=== PATIENT | female | born 1980 | race Caucasian/White ===

== ENCOUNTER 2018-06-04 22:57 | Emergency (ER) | payer MEDICAID ==
[~2018-06-04] VITALS: Ht 160 cm; Wt 88.6 kg
[~2018-06-04 22:57] MED LIST: IBUP-40 PO
[2018-06-04 23:09] VITALS: BP 142/95; PULSE 78; RESP 16; Ht 160 cm; Wt 88.6 kg
--- NOTE | 2018-06-05 02:50 | ERD ---
ER Documentation Chief Complaint Chief Complaint L side pain x 3 weeks, nausea and diarrhea HPI This is a 37-year-old female denies significant past medical history presents ED with complaints of left-sided abdominal pain that has been present for over 3 years. Patient states the pain comes and goes. Patient states that this bout of pain started over the past 3 weeks. Patient denies any pain currently.. Patient states the pain is worsened by movement and with exercise. States that she notes some discomfort when urinating. Denies fever, chills, nausea, vomiting, diarrhea, constipation, melena, hematocheziahematuria, vaginal pain, vaginal discharge, and other symptoms. No known drug allergies. Has not been seen by GI specialist. ROS All systems reviewed and are negative except as per history of present illness. Medications Home Meds Reported Medications Ibuprofen (Advil) 200 Mg Tablet, PO Q6 02/19/12 Allergies Allergies: Coded Allergies: No Known Allergy (Unverified , 06/04/18) PMhx/Soc History of Surgery: Yes (TUBAL LIGATION) Anesthesia Reaction: No Hx Neurological Disorder: No Hx Respiratory Disorders: No Hx Cardiac Disorders: No Hx Psychiatric Problems: No Hx Miscellaneous Medical Probl: Yes (CHRONIC PAIN FOR APPROX ONE YEAR) Hx Alcohol Use: No Hx Substance Use: No Hx Tobacco Use: No Smoking Status: Never smoker Physical Exam Vitals Vital Signs Date Temp Pulse Resp B/P (MAP) Pulse Ox O2 O2 Flow FiO2 Time Delivery Rate 06/04/18 97.6 78 16 142/95 97 23:09 (111) Physical Exam Physical Exam Vitals signs: Reviewed by me. General: Well developed, well nourished, in no acute distress. Patient is awake and alert. Head: Normocephalic, atraumatic. Eyes: Normal conjunctiva, Pupils PERRLA, EOM intact grossly ENT: Pharynx is clear, Moist mucous membranes, external ears, nose and mouth normal Neck: Supple, no masses, lymphadenopathy or JVD Respiratory: Clear to auscultation bilaterally with no wheezing, rhonchi, rales, no distress Cardiovascular: RRR, no murmurs, rubs, or gallops Abdominal: Soft, nondistended, no peritoneal signs, no rigidity, no surgical abdomen, bowel sounds present all 4 quadrants, nontender light and deep palpation all 4 quadrants, McBurney's point nontender, no rebound tenderness, Gong sign negative, Back: No midline tenderness. No flank tenderness Neurologic: Alert and oriented, moving all extremities, normal speech, no focal weakness, no cerebellar signs. Normal mentation Skin: warm and dry, No rash Psych: Normal mood Result Diagram: 06/05/18 0251 06/05/18 0251 Results 24 hrs Laboratory Tests Test 06/05/18 02:51 06/05/18 02:54 White Blood Count 11.5 10^3/ul Red Blood Count 4.32 10^6/ul Hemoglobin 12.3 g/dl Hematocrit 37.0 % Mean Corpuscular Volume 85.6 fl Mean Corpuscular Hemoglobin 28.5 pg Mean Corpuscular Hemoglobin Concent 33.2 g/dl Red Cell Distribution Width 12.6 % Platelet Count 233 10^3/UL Mean Platelet Volume 11.2 fl Immature Granulocytes % 0.500 % Neutrophils % 57.3 % Lymphocytes % 33.8 % Monocytes % 5.8 % Eosinophils % 2.2 % Basophils % 0.4 % Nucleated Red Blood Cells % 0.0 /100WBC Immature Granulocytes # 0.060 10^3/ul Neutrophils # 6.6 10^3/ul Lymphocytes # 3.9 10^3/ul Monocytes # 0.7 10^3/ul Eosinophils # 0.3 10^3/ul Basophils # 0.1 10^3/ul Nucleated Red Blood Cells # 0.0 10^3/ul Urine Color YELLOW Urine Clarity SLIGHTLY CLOUDY Urine pH 6.0 Urine Specific [place] 1.027 Urine Ketones NEGATIVE mg/dL Urine Nitrite NEGATIVE mg/dL Urine Bilirubin NEGATIVE mg/dL Urine Urobilinogen NEGATIVE mg/dL Urine Leukocyte Esterase 1+ Allegra/ul Urine Microscopic RBC 5 /HPF Urine Microscopic WBC 4 /HPF Urine Squamous Epithelial Cells FEW /HPF Urine Hemoglobin NEGATIVE mg/dL Urine Glucose NEGATIVE mg/dL Urine Total Protein NEGATIVE mg/dl Sodium Level 141 mmol/L Potassium Level 4.4 mmol/L Chloride Level 107 mmol/L Carbon Dioxide Level 24 mmol/L Anion Gap 10 Blood Urea Nitrogen 14 mg/dl Creatinine 0.55 mg/dl Est Glomerular Filtrat Rate mL/min > 60 mL/min Glucose Level 157 mg/dl Calcium Level 9.3 mg/dl Total Bilirubin 0.1 mg/dl Direct Bilirubin 0.00 mg/dl Indirect Bilirubin 0.1 mg/dl Aspartate Amino Transf (AST/SGOT) 42 IU/L Alanine Aminotransferase (ALT/SGPT) 52 IU/L Alkaline Phosphatase 77 IU/L Total Protein 7.3 g/dl Albumin 4.2 g/dl Globulin 3.10 g/dl Albumin/Globulin Ratio 1.35 Lipase 104 U/L POC Beta HCG, Qualitative NEGATIVE Procedures/MDM LAB INTERPRETATION CBC shows elevated WBC 11.5 Chemistry shows no evidence of significant electrolyte abnormalities or renal insufficiency Liver function test shows no evidence of acute biliary or hepatic dysfunction Lipase shows no evidence of acute pancreatitis Urine negative Urinalysis remarkable for 4 WBCs, 5 RBCs, 1+ leukocyte esterase ER COURSE: Patient was offered medication for pain but the patient declined stating that she does not have pain at this time The patient was stable throughout ED course. I kept the patient and/or family informed of laboratory and diagnostic imaging results throughout the emergency room course. The patient was promptly evaluated and a treatment plan was devised based on H&P and other data. This plan was discussed with the patient who agreed and had no further questions or concerns prior to discharge. MEDICAL DECISION MAKING: This is a 37-year-old female presents ED with complaints of left-sided abdominal pain that is been present for the past 3 years. Patient states the pain comes and goes. Patient does not have any pain at this time. Non- woman presenting with abdominal pain. test is negative. Considered causes of female-specific abdominal pain including pelvic inflammatory disease, tubo- ovarian abscess, [id number]-[id number], and ovarian torsion. Also considered causes of abdominal pain that are not gender-specific (e.g., appendicitis, volvulus, small bowel obstruction, mesenteric adenitis, acute cholecystitis/choledocholithiasis and other biliary pathology, etc.). Patient well-appearing with normal vital signs. No peritoneal signs and abdomen benign on multiple repeat examinations. Pt well hydrated. Urinalysis does show leukocyte esterase but otherwise laboratory testing here reviewed and normal. We will treat patient for UTI. Patient was advised to follow-up with food prep worker given 3 years of abdominal pain. Patient given strict return precautions for worsening pain, inability to eat/drink, fevers (temperature over 100.4F), or other concerns. Prior to discharge all questions answered. She agrees with treatment plan and understands strict return precautions. Follow-up for repeat abdominal exam within 12 hours. DISPOSITION PLAN: We discussed follow up with the patient's primary care doctor within 24 to 48 hours. Patient counseled regarding my diagnostic impression and care plan. Prior to discharge all questions answered. Pt agrees with treatment plan and understands strict return precautions. Precautionary instructions provided including instructions to return to the ER if not improving or for any worsening or changing symptoms or concerns. SPECIALIST FOLLOW UP RECOMMENDED: Php Engineer Patient has been advised to follow up with primary care in 1-2 days. Disclaimer: Inadvertent spelling and grammatical errors are likely due to EHR/dictation software use and do not reflect on the overall quality of patient care. Also, please note that the electronic time recorded on this note does not necessarily reflect the actual time of the patient encounter. Departure Diagnosis: Primary Impression: Abdominal pain Additional Impression: UTI (urinary tract infection) Condition: Stable Patient Instructions: Abdominal Pain, Understanding Urinary Tract Infections (UTIs) Referrals: IKER ROD MD, NAGARAJ M MD DESIGAN,BIANCA FARMER,GIA LEHMAN MD, MD,DARLIN KAPLAN,MINNIE [facility] () Additional Instructions: Paciente aconseja volver a Departamento de urgencias inmediatamente para sntomas nuevos o que empeoran . Paciente aconseja posteriores con el PCP en 1-2 hartman . Paciente verbaliza la comprehensin y est de acuerdo con el tratamiento y el curso de accin. Si el paciente no tiene ninguna de atencin primaria pueden seguir con [facility] [address] [place] [address] o [facility] + [address] [address] KAYDEN LOPEZ PA-C Jun 05, 2018 02:50
[2018-06-05] MEDS ORDERED: CEPH-443 PO (03:31)
== END 2018-06-05 03:38 | disposition home or self-care (01) ==
LOC: FTE 22:57
DX: N39.0 Urinary tract infection, site not specified (principal)
CPT/HCPCS: 36415; 80053; 81001; 81025; 83690; 85025; Z7502; 99283

== ENCOUNTER 2018-07-09 20:38 | Emergency (ER) | payer MEDICAID ==
[~2018-07-09] VITALS: Wt 89.5 kg
[~2018-07-09 20:38] MED LIST changes: +CEPH-443 PO
[2018-07-09 20:43] VITALS: BP 148/99; PULSE 87; RESP 16
--- NOTE | 2018-07-09 22:44 | ERD ---
ER Documentation Chief Complaint Chief Complaint L flank to mid AP x1mo; dysuria w hematuria x1d. HPI She is a 37 years old female past medical history of frequent UTI presenting to the clinic for suprapubic pain and dysuria. Patient reports of 1 month history of suprapubic pain followed by new onset dysuria, urinary frequency/urgency, and hematuria since today morning. Patient denies taking OTC medication. Patient was evaluated in hospital 1 month ago and was diagnosed with UTI. Patient states that she has never seen a urologist for her frequent urinary tract infection and is requesting referral. ROS All systems reviewed and are negative except as per history of present illness. Medications Home Meds Active Scripts Ciprofloxacin Hcl* (Ciprofloxacin Hcl*) 250 Mg Tablet, 250 MG PO BID for 5 Days, #10 TAB Prov:ROSANNE AVALOS PA-C 07/10/18 Phenazopyridine Hcl* (Pyridium*) 100 Mg Tab, 100 MG PO TID PRN for URINARY PAIN, #8 TAB Prov:ROSANNE AVALOS PA-C 07/10/18 Cephalexin* (Keflex*) 500 Mg Capsule, 500 MG PO BID for 7 Days, CAP Prov:KAYDEN LOPEZ PA-C 06/05/18 Reported Medications Ibuprofen (Advil) 200 Mg Tablet, PO Q6 02/19/12 Allergies Allergies: Coded Allergies: No Known Allergy (Unverified , 06/04/18) PMhx/Soc Frequent UTI. History of Surgery: Yes (TUBAL LIGATION) Anesthesia Reaction: No Hx Neurological Disorder: No Hx Respiratory Disorders: No Hx Cardiac Disorders: No Hx Psychiatric Problems: No Hx Miscellaneous Medical Probl: Yes (CHRONIC PAIN FOR APPROX ONE YEAR) Hx Alcohol Use: No Hx Substance Use: No Hx Tobacco Use: No Smoking Status: Never smoker FmHx Family History: No diabetes, No coronary disease, No other Physical Exam Vitals Vital Signs Date Temp Pulse Resp B/P (MAP) Pulse Ox O2 O2 Flow FiO2 Time Delivery Rate 07/09/18 99.1 87 16 148/99 99 20:43 (115) Physical Exam Const: No acute distress Head: Atraumatic Eyes: Normal Conjunctiva. PERRLA, No Nystagmus. Resp: Clear to auscultation bilaterally Cardio: Regular rate and rhythm, no murmurs Abd: Soft, non tender, non distended. Normal bowel sounds. Suprapubic tenderness. Back: No midline or flank tenderness Neur: Awake and alert Psych: Normal Mood and Affect Results 24 hrs Laboratory Tests Test 07/09/18 22:44 07/09/18 22:46 Urine Color STRAW Urine Clarity CLEAR Urine pH 6.0 Urine Specific [place] 1.004 Urine Ketones NEGATIVE mg/dL Urine Nitrite NEGATIVE mg/dL Urine Bilirubin NEGATIVE mg/dL Urine Urobilinogen NEGATIVE mg/dL Urine Leukocyte Esterase 3+ Allegra/ul Urine Microscopic RBC 7 /HPF Urine Microscopic WBC 27 /HPF Urine Squamous Epithelial Cells FEW /HPF Urine Hemoglobin 3+ mg/dL Urine Glucose NEGATIVE mg/dL Urine Total Protein NEGATIVE mg/dl POC Beta HCG, Qualitative NEGATIVE Current Medications Medications Dose Sig/[place] Start Time Status Last (Trade) Ordered Route PRN Stop Time Admin Dose Reason Admin 100 mg ONCE ONCE 07/09/18 DC 07/09/18 Phenazopyridi PO 23:00 22:53 ne HCl 07/09/18 23:01 (Pyridium) Procedures/MDM Patient was seen and evaluated for suprapubic pain possible UTI. Patient has persistent suprapubic pain and this is further investigation for fibroids. Ultrasound showed Thickened endometrium with small endometrial cysts. Urinalysis shows leukocyte esterase which is significant for UTI. Patient is stable and ready for discharge. Patient will be notified for urine culture results. Departure Diagnosis: Primary Impression: Endometrial hyperplasia Additional Impression: UTI (urinary tract infection) Urinary tract infection type: acute cystitis Hematuria presence: without hematuria Qualified Codes: N30.00 - Acute cystitis without hematuria Condition: Stable Referrals: MINERVA HUMPHREY MD, MEHRAN RAMIN, SOROUSH [facility] Additional Instructions: Paciente aconseja volver a Departamento de urgencias inmediatamente para sntomas nuevos o que empeoran . Paciente aconseja posteriores con el PCP en 2-3 hartman . Paciente verbaliza la comprehensin y est de acuerdo con el tratamiento y el curso de accin. Si el paciente no tiene ninguna de atencin primaria pueden seguir con [facility] [address] [place] [address] o [facility] + [address] [address] ROSANNE AVALOS PA-C July 09, 2018 22:44
[2018-07-09] MEDS ORDERED: PHENAZOPYRIDINE 100 MG TAB PO ONE (23:00)
[2018-07-10] MEDS ORDERED: PHEN-537 PO (01:20)
[2018-07-10] MEDS ORDERED: CIPR-193 PO (01:20)
== END 2018-07-10 01:31 | disposition home or self-care (01) ==
LOC: FTE 20:38
DX: N30.00 Acute cystitis without hematuria (principal); N85.00 Endometrial hyperplasia, unspecified; R10.2 Pelvic and perineal pain
CPT/HCPCS: 76830; 76856; 81001; 81025; 87086; Z7610